=== PATIENT | male | born 1965 | race Caucasian/White ===

== ENCOUNTER 2019-04-16 13:18 | Emergency (ER) | payer OTHER, BC ==
[2019-04-16 13:37] VITALS: TEMP 98.2; BMI 33.1
--- NOTE | 2019-04-16 14:19 | PDOC ---
History of Present Illness - History of Present Illness Initial Comments: 04/16/19 15:31 53 y/o M hx of anxiety, depression, insomnia, presents to the ER with complaint of generalized weakness 2 days ago. He tried to get out of his bathtub and was unable to do so/support his weight. He was able to crawl out of his bathtub onto the floor and eventually to his bed. He was on the floor for approximately 3 hours before symptoms began to resolve gradually. He then proceeded to an ER but left before he could be evaluated. He was found to be hypertensive at urgent care yesterday and was referred to the ED. AT time of event denies, hitting his head, any LOC/syncopal event, assymetricl neurological symptoms. He is able to ambulate at this time. He reports stopping his anxiety and depression medications for 2.5 weeks prior to incident. He denies any tick bites , travel, recent contact, fevers, chills, nausea, vomiting. 04/16/19 15:30 <Estela Patel - Last Filed: 04/16/19 17:26> <Angelica Pierson - Last Filed: 04/17/19 03:59> - General Chief Complaint: CVA/TIA Stated Complaint: weakness,sent by Urgent care for ct head Time Seen by Provider: 04/16/19 13:30 Past History - Past Medical History COPD: No Psychiatric Problems: Yes (anxiety,depression,panic attack,insomnia) - Psycho Social/Smoking Cessation Hx Smoking History: Never smoked Hx Alcohol Use: Yes (socially) Drug/Substance Use Hx: No <Estela Patel - Last Filed: 04/16/19 17:26> <Angelica Pierson - Last Filed: 04/17/19 03:59> - Past Medical History Allergies/Adverse Reactions: Allergies Allergy/AdvReac Type Severity Reaction Status Date / Time No Known Allergies Allergy Verified 04/16/19 13:29 Home Medications: Ambulatory Orders Zolpidem Tartrate [Ambien] 10 mg PO DAILY 04/16/19 clonazePAM [Klonopin -] 2 mg PO DAILY 04/16/19 *Physical Exam - Vital Signs Last Vital Signs Temp Pulse Resp BP Pulse Ox 98.2 F 88 18 158/97 96 04/16/19 13:21 04/16/19 13:21 04/16/19 13:21 04/16/19 13:21 04/16/19 13:21 - Physical Exam 04/16/19 15:31 GENERAL: Awake, alert, and fully oriented, in no acute distress HEAD: No signs of trauma, normocephalic, atraumatic EYES: pupils are dilated. EOMI, sclera anicteric, conjunctiva clear ENT: Auricles normal inspection, hearing grossly normal, nares patent, oropharynx clear without exudates. Moist mucosa NECK: Normal ROM, supple, no lymphadenopathy, JVD, or masses LUNGS: No distress, speaks full sentences, clear to auscultation bilaterally HEART: Regular rate and rhythm, normal S1 and S2, no murmurs, rubs or gallops, peripheral pulses normal and equal bilaterally. ABDOMEN: Soft, nontender, normoactive bowel sounds. No guarding, no rebound. No masses EXTREMITIES : Normal inspection, Normal range of motion, no edema. No clubbing or cyanosis NEUROLOGICAL: Cranial nerves II through XII grossly intact. Normal speech, normal gait, no focal sensorimotor deficits. hyporeflexic left lower extremity SKIN: Warm, Dry, echymosis RLQ abdomen, bruising on upper left back and left side in mid axillary line. <Estela Patel - Last Filed: 04/16/19 17:26> - Vital Signs Last Vital Signs Temp Pulse Resp BP Pulse Ox 98.2 F 78 14 155/102 H 100 04/16/19 19:49 04/16/19 19:49 04/16/19 19:49 04/16/19 19:49 04/16/19 19:49 <Angelica Pierson - Last Filed: 04/17/19 03:59> ED Treatment Course - LABORATORY CBC & Chemistry Diagram: 04/16/19 14:30 04/16/19 14:30 <Estela Patel - Last Filed: 04/16/19 17:26> - LABORATORY CBC & Chemistry Diagram: 04/16/19 20:10 04/16/19 20:10 - ADDITIONAL ORDERS Additional order review: Laboratory Results 04/16/19 04/16/19 04/16/19 20:30 20:10 14:30 Sodium 135 L Potassium 3.7 Chloride 107 Carbon Dioxide 25 Anion Gap 3 L BUN 8.0 Creatinine 0.8 Est GFR (CKD-EPI)AfAm 119.88 Est GFR (CKD-EPI)NonAf 103.43 Random Glucose 129 H Calcium 7.7 L Total Bilirubin 1.6 H AST 99 H ALT 71 H Alkaline Phosphatase 73 D Creatine Kinase 1066 H Creatine Kinase Index CK-MB (CK-2) Total Protein 6.1 L Albumin 3.6 Urine Color [place] Urine Appearance Clear Urine pH 6.0 Urine Protein 1+ H Urine Glucose (UA) Negative Urine Ketones Negative Urine Blood Negative Urine Nitrite Positive Urine Bilirubin 1+ H Urine Urobilinogen 0.2 Ur Leukocyte Esterase Negative Urine RBC 0-2 Urine WBC 2-5 Calcium Oxalate Crystal Moderate Alcohol, Quantitative 04/16/19 04/16/19 14:30 14:30 Sodium 135 L Potassium 3.8 Chloride 103 Carbon Dioxide 27 Anion Gap 5 L BUN 10.0 Creatinine 0.8 Est GFR (CKD-EPI)AfAm 119.88 Est GFR (CKD-EPI)NonAf 103.43 Random Glucose 138 H Calcium 8.8 Total Bilirubin 1.9 H AST 114 H ALT 82 H Alkaline Phosphatase 87 Creatine Kinase 1540 H Creatine Kinase Index 0.3 CK-MB (CK-2) 5.7 H Total Protein 6.9 Albumin 4.1 Urine Color Urine Appearance Urine pH Urine Protein Urine Glucose (UA) Urine Ketones Urine Blood Urine Nitrite Urine Bilirubin Urine Urobilinogen Ur Leukocyte Esterase Urine RBC Urine WBC Calcium Oxalate Crystal Alcohol, Quantitative < 3 04/16/19 04/16/19 20:10 14:30 RBC 3.41 L 3.82 L MCV 112.2 H 111.3 H MCHC 34.4 33.4 RDW 13.6 13.3 MPV 8.7 8.5 Neutrophils % No Result Required. No Result Required. Lymphocytes % No Result Required. No Result Required. - Medications Given in the ED: ED Medications Discontinued Medications Generic Name Dose Route Start Last Admin Trade Name Freq PRN Reason Stop Dose Admin Sodium Chloride 1,000 mls @ 1,000 mls/hr 04/16/19 17:04 04/16/19 17:27 Normal Saline - IV 04/16/19 18:03 1,000 mls/hr ASDIR STA Administration Sodium Bicarbonate 50 meq 04/16/19 17:05 04/16/19 17:27 Sodium Bicarbonate 8.4% - IV 04/16/19 17:06 50 meq ONCE ONE Administration Sodium Chloride 1,000 ml 04/16/19 15:52 04/16/19 16:17 Normal Saline - IV 04/16/19 15:53 1,000 ml ONCE ONE Administration Sodium Chloride 1,000 ml 04/16/19 18:20 04/16/19 18:26 Normal Saline - IV 04/16/19 18:21 1,000 ml ONCE ONE Administration <Angelica Pierson - Last Filed: 04/17/19 03:59> Medical Decision Making - Medical Decision Making 04/16/19 15:33 53 y/o M hx of anxiety, depression, insomnia, presents to the ER with complaint of generalized weakness 2 days ago. 04/16/19 16:47 Elevated CK (1530 on labs) IV resuscitaion with 1L normal saline. 04/16/19 17:26 Pt receiving second bag of IV fluids. <Estela Patel - Last Filed: 04/16/19 17:26> Discharge <Estela Patel - Last Filed: 04/16/19 17:26> - Discharge Information Problems reviewed: Yes <Angelica Pierson - Last Filed: 04/17/19 03:59> - Discharge Information Clinical Impression/Diagnosis: Rhabdomyolysis Qualifiers: Rhabdomyolysis type: traumatic Encounter type: initial encounter Qualified Code (s): T79.6XXA - Traumatic ischemia of muscle, initial encounter Condition: Stable Disposition: HOME - Follow up/Referral Referrals: Martin Leal MD [Staff Physician] - Jacky Gallardo MD [Staff Physician] - - Patient Discharge Instructions Patient Printed Discharge Instructions: DI for Rhabdomyolysis Additional Instructions: drink plenty of water avoid drinking excessive amounts of alcohol return to ER of you develop muscle pain/persistent weakness or brown urine Call neurologist () office on April 19 to arrange follow-up Follow-up with [facility](Dr Gallardo) or [facility] internal medicine group as discussed within 5 to 7 days
--- NOTE | 2019-04-16 14:32 | PDOC ---
Attending Attestation - Resident Resident Name: Estela Patel - ED Attending Attestation I have performed the following: I have examined & evaluated the patient, The case was reviewed & discussed with the resident, I agree w/resident's findings & plan, Exceptions are as noted - HPI HPI: 04/17/19 07:14 Patient states that after drinking a bottle of wine and sitting in a hot bathtub , he experienced generalized weakness, with the sensation that none of his muscles were working. He had to crawl out of the bathtub and into bed. Over the next few hours he seemed to recover. There were no other associated symptoms. But he complains of multiple bruises on his back and abdomen as a result of crawling into bed. Denies chest pain, shortness of breath, abdominal pain, nausea, vomiting, diarrhea, visual or focal neurologic symptoms. Remainder of systems reviewed and negative Patient is a retired [employer], lives alone, drinks "a couple of bottles of wine or a bottle of vodka a night". He denies ever having alcohol withdrawals or intoxication. He denies liver problems, heart problems, [place], CVA , PVD. He does not smoke or use drugs. - Physicial Exam PE: 04/17/19 07:18 Physical exam: Alert and oriented x3, well-developed well-nourished no acute distress cheerful and cooperative. Does not appear ill Afebrile, vital signs normal PERRLA 4 mm, fundi benign, ENT clear Neck supple without bruit mass or nodes Lungs clear, full breath sounds bilaterally CV regular without murmur rub or gallop pulses full and symmetric no JVD or edema no bruits Abdomen nondistended. Bowel sounds normal. Soft without mass tenderness organomegaly Neurological C2 to 12 intact. Strength full and symmetric. No focal sensorimotor deficits. Cerebellar function intact. Gait stable and unimpaired. No asterixis or palmar erythema. Completely coherent. Extremities no CCE Multiple ecchymoses are noted over the trunk and extremities, having the appearance of superficial bruises. There is no sign of serious injury. No visible or palpable sign of fracture of the extremities, shoulders, hips, or ribs. - Medical Decision Making 04/17/19 07:20 Assessment: Probable episode of decreased blood pressure as a result of alcohol and a hot bath, symptoms resolved. No loss of consciousness. No residual neurologic effects. Suspect that patient has problems with alcohol abuse, possibly passes out and remains recumbent for long periods of time, resulting in bruises. Rule out rhabdo Plan: CBC and chemistries, CPK, further medical management depending on results CK is approximately 1500. Alcohol level negative. Mild rhabdomyolysis suspected. IV fluids and alkalinization. Further lab work after hydration. Signed out to Dr. Pierson at 7 PM with third liter of fluid infusing, pending repeat labs. Patient clinically and hemodynamically stable. No alcohol on board at present.
[2019-04-16 15:07] LABS: HEMATOCRIT 42.5 % (35.4-49); HEMOGLOBIN 14.2 GM/dl (11.7-16.9); MCH 37.1 pg (25.7-33.7); MCHC 33.4 g/dl (32.0-35.9); MEAN CELL VOLUME 111.3 fl (80-96); MEAN PLT VOLUME 8.5 fl (7.5-11.1); PLATELET COUNT 96 K/MM3 (134-434); RBC 3.82 M/mm3 (4.00-5.60); RDW 13.3 % (11.9-15.9); WHITE BLOOD COUNT 2.5 K/mm3 (4.0-10.8)
[2019-04-16 15:14] LABS: ADD RBC MORPHOLOGY YES
[2019-04-16 15:15] LABS: ALBUMIN 4.1 g/dl (3.4-5.0); ALK PHOS 87 U/L (45-117); ANION GAP 5 MMOL/L (8-16); BILIRUBIN,TOTAL 1.9 mg/dl (0.2-1); CALCIUM 8.8 mg/dl (8.5-10); CHLORIDE 103 mmol/L (98-107); CO2 27 mmol/L (21-32); CREATININE 0.8 mg/dl (0.55-1.3); GLUCOSE,RANDOM 138 mg/dl (74-106); POTASSIUM 3.8 mmol/L (3.5-5.1); SGOT/AST 114 U/L (15-37); SGPT/ALT 82 U/L (13-61); SODIUM 135 mmol/L (136-145); TOT PROT 6.9 g/dl (6.4-8.2)
[2019-04-16] MEDS ORDERED: SODIUM CHLORIDE 0.9% 500 ML INFUS.BAG IV ONE ×2 (15:52→18:20)
[2019-04-16 15:54] LABS: CALCIUM OXALATE CRYSTALS MODERATE /hpf (NONE SEEN)
[2019-04-16 16:39] LABS: MACROCYTOSIS 2+
[2019-04-16 16:40] LABS: PLATELET ESTIMATE DECREASED
[2019-04-16] MEDS ORDERED: SODIUM CHLORIDE 1,000 ML IV STA (17:04)
[2019-04-16] MEDS ORDERED: SODIUM BICARBONATE 8.4% 50 MEQ/50 ML VIAL IV ONE (17:05)
[2019-04-16] MEDS ORDERED: SODIUM BICARBONATE 8.4% 50 MEQ/50 ML VIAL ONE (17:18)
[2019-04-16 19:50] VITALS: BP 155/102; PULSE 78
--- NOTE | 2019-04-16 19:59 | PDOC ---
*Physical Exam - Vital Signs Last Vital Signs Temp Pulse Resp BP Pulse Ox 98.2 F 78 14 155/102 H 100 04/16/19 19:49 04/16/19 19:49 04/16/19 19:49 04/16/19 19:49 04/16/19 19:49 ED Treatment Course - LABORATORY CBC & Chemistry Diagram: 04/16/19 20:10 04/16/19 20:10 - ADDITIONAL ORDERS Additional order review: Laboratory Results 04/16/19 04/16/19 04/16/19 14:30 14:30 14:30 Sodium 135 L Potassium 3.8 Chloride 103 Carbon Dioxide 27 Anion Gap 5 L BUN 10.0 Creatinine 0.8 Est GFR (CKD-EPI)AfAm 119.88 Est GFR (CKD-EPI)NonAf 103.43 Random Glucose 138 H Calcium 8.8 Total Bilirubin 1.9 H AST 114 H ALT 82 H Alkaline Phosphatase 87 Creatine Kinase 1540 H Creatine Kinase Index 0.3 CK-MB (CK-2) 5.7 H Total Protein 6.9 Albumin 4.1 Urine Color [place] Urine Appearance Clear Urine pH 6.0 Urine Protein 1+ H Urine Glucose (UA) Negative Urine Ketones Negative Urine Blood Negative Urine Nitrite Positive Urine Bilirubin 1+ H Urine Urobilinogen 0.2 Ur Leukocyte Esterase Negative Urine RBC 0-2 Urine WBC 2-5 Calcium Oxalate Crystal Moderate Alcohol, Quantitative < 3 04/16/19 14:30 RBC 3.82 L MCV 111.3 H MCHC 33.4 RDW 13.3 MPV 8.5 Neutrophils % No Result Required. Lymphocytes % No Result Required. - Medications Given in the ED: ED Medications Discontinued Medications Generic Name Dose Route Start Last Admin Trade Name Freq PRN Reason Stop Dose Admin Sodium Chloride 1,000 mls @ 1,000 mls/hr 04/16/19 17:04 04/16/19 17:27 Normal Saline - IV 04/16/19 18:03 1,000 mls/hr ASDIR STA Administration Sodium Bicarbonate 50 meq 04/16/19 17:05 04/16/19 17:27 Sodium Bicarbonate 8.4% - IV 04/16/19 17:06 50 meq ONCE ONE Administration Sodium Chloride 1,000 ml 04/16/19 15:52 04/16/19 16:17 Normal Saline - IV 04/16/19 15:53 1,000 ml ONCE ONE Administration Sodium Chloride 1,000 ml 04/16/19 18:20 04/16/19 18:26 Normal Saline - IV 04/16/19 18:21 1,000 ml ONCE ONE Administration ED Progress Note - Progress Note Progress Note: Care of this patient received from . Patient feels markedly improved after 2 L of normal saline IV hydration. Repeat CBC and chemistry profile with CK indicates CK levels improving (dropped 500 units after hydration) and no new abnormalities (BUN/cre continue to be normal) Patient discharged with recommendations to drink plenty of water to avoid excessive alcohol use. The patient does not have a general medical physician. He was given referral information for Dr. Gallardo of [facility]; patient states that he will likely follow-up with [facility] internal medicine group since he lives in [facility] and [facility] is much more convenient (patient does not drive). He had also asked for neurologist referral and contact information for (on-call) provided for the patient. Discharge - Discharge Information Problems reviewed: Yes Clinical Impression/Diagnosis: Rhabdomyolysis Qualifiers: Rhabdomyolysis type: traumatic Encounter type: initial encounter Qualified Code (s): T79.6XXA - Traumatic ischemia of muscle, initial encounter Condition: Stable Disposition: HOME - Follow up/Referral Referrals: Martin Leal MD [Staff Physician] - Jacky Gallardo MD [Staff Physician] - - Patient Discharge Instructions Patient Printed Discharge Instructions: DI for Rhabdomyolysis Additional Instructions: drink plenty of water avoid drinking excessive amounts of alcohol return to ER of you develop muscle pain/persistent weakness or brown urine Call neurologist () office on April 19 to arrange follow-up Follow-up with [facility](Dr Gallardo) or [facility] internal medicine group as discussed within 5 to 7 days - Post Discharge Activity
[2019-04-16 20:29] LABS: HEMATOCRIT 38.3 % (35.4-49); HEMOGLOBIN 13.2 GM/dl (11.7-16.9); MCH 38.6 pg (25.7-33.7); MCHC 34.4 g/dl (32.0-35.9); MEAN CELL VOLUME 112.2 fl (80-96); MEAN PLT VOLUME 8.7 fl (7.5-11.1); PLATELET COUNT 72 K/MM3 (134-434); RBC 3.41 M/mm3 (4.00-5.60); RDW 13.6 % (11.9-15.9); WHITE BLOOD COUNT 2.6 K/mm3 (4.0-10.8)
[2019-04-16 20:33] LABS: ALBUMIN 3.6 g/dl (3.4-5.0); BILIRUBIN,TOTAL 1.6 mg/dl (0.2-1); CALCIUM 7.7 mg/dl (8.5-10); CREATININE 0.8 mg/dl (0.55-1.3); POTASSIUM 3.7 mmol/L (3.5-5.1); TOT PROT 6.1 g/dl (6.4-8.2)
[2019-04-16 21:05] LABS: ANISOCYTOSIS 1+; MACROCYTOSIS 2+
[2019-04-16 21:06] LABS: PLATELET ESTIMATE DECREASED
== END 2019-04-16 21:27 | disposition home or self-care (01) ==
LOC: FER 13:18
PROC: 3E033GC Introduction of Other Therapeutic Substance into Peripheral Vein, Percutaneous Approach (ICD-10-PCS; principal; 2019-04-16)
PROC: 3E0337Z Introduction of Electrolytic and Water Balance Substance into Peripheral Vein, Percutaneous Approach (ICD-10-PCS; 2019-04-16)
DX: T79.6XXA Traumatic ischemia of muscle, initial encounter (principal); F41.8 Other specified anxiety disorders; G47.00 Insomnia, unspecified
CPT/HCPCS: 36415; 80053; 80307; 81003; 81015; 82550; 82553; 85025; 87086; 99284-25; J7030